=== PATIENT | female | born 1980 ===

== ENCOUNTER 2021-07-20 19:19 | Emergency (ER) | payer BC ==
[2021-07-20] MEDS ORDERED: Ondansetron 4 MG/2 ML SDV IV ONE (19:21)
[2021-07-20] MEDS ORDERED: fentaNYL 50 MCG/ML SDV IVPUSH ONE ×2 (19:21→22:01)
[2021-07-20] MEDS ORDERED: Sodium Chloride 0.9% 10 ML Syringe FLUSH PRN (19:21)
[2021-07-20] MEDS ORDERED: HYDROmorphone 0.5 MG/0.5 ML Syringe IV ONE (21:28)
[2021-07-20] MEDS ORDERED: fentaNYL 50 MCG/ML SDV ONE (21:52)
[2021-07-20] MEDS ORDERED: Acetaminophen/HYDROcodone 325-10 MG Tab PO PRN (22:01)
[2021-07-20] MEDS ORDERED: Acetaminophen/HYDROcodone 325-5 MG Tab PO ONE (22:02)
[2021-07-20] MEDS ORDERED: Acetaminophen/HYDROcodone 325-10 MG Tab PO ONE (22:22)
== END 2021-07-20 22:30 | disposition home or self-care (01) ==
LOC: LL.ED 19:19
DX: S82.851A Displaced trimalleolar fracture of right lower leg, initial encounter for closed fracture (principal); Z79.899 Other long term (current) drug therapy; W00.0XXA Fall on same level due to ice and snow, initial encounter
CPT/HCPCS: 73610; 87635; 96374; 96375; 99283; J1170; J2405; J3010; U0002

== ENCOUNTER 2022-02-03 00:03 | Emergency (ER) | payer BC ==
[2022-02-03] MEDS ORDERED: Sodium Chloride 0.9% 10 ML Syringe FLUSH PRN (00:15)
[2022-02-03] MEDS ORDERED: GI Cocktail Oral Solution 30 ML PO ONE (00:16)
[2022-02-03 01:07] LABS: ANION GAP 7.3 meq/L (7-15)
== END 2022-02-03 02:04 | disposition home or self-care (01) ==
LOC: LL.ED 00:03
DX: R12 Heartburn (principal); R07.89 Other chest pain; F41.9 Anxiety disorder, unspecified; E03.9 Hypothyroidism, unspecified; Z79.899 Other long term (current) drug therapy
CPT/HCPCS: 36415; 80053; 83735; 84443; 84484; 85025; 93005; 99285; A9270